=== PATIENT | female | born 1950 | race Caucasian/White ===

== ENCOUNTER 2017-06-14 07:35 | Day surgery (SDC) | payer BC ==
[~2017-06-14] VITALS: Ht 157.5 cm; Wt 88.9 kg
[~2017-06-14 07:35] MED LIST: CALCIUM500 MG PO; DAILY VITE1 EACH PO; FLAX SEED OIL1000 MG PO; LANTUS100 UNITS/ SUB-Q; METFORMIN HCL500 MG PO; SIMVASTATIN40 MG PO; SYNTHROID100 MCG PO; VITAMIN D2000 UNI1 PO
[2017-06-14] MEDS ORDERED: ADULT LOW DOSE81 MG PO (07:56)
--- NOTE | 2017-06-14 10:39 | NUR ---
PT RETURNS FROM IMAGING AND IV IS RECONNECTED. FAMILY REMAINS @ BS. PT AMBULATES TO THE BR AND IS BACK IN BED. PT DENIES ADD'L NEEDS.
[2017-06-14] MEDS ORDERED: IBUPROFEN600 MG PO (14:32)
[2017-06-14] MEDS ORDERED: HYDROMORPHONE HC4 MG PO (14:32)
[2017-06-14] MEDS ORDERED: MAPAP325 MG PO (14:33)
--- NOTE | 2017-06-14 14:57 | NUR ---
PT IS BACK TO DS FROM PACU. PT IS AWAKE AND ALERT, FAMILY IS AT THE BEDSIDE. PT HAS WATER ON THE BEDSIDE TABLE. SHE HAS NO C/O'S PAIN OR NAUSEA AT THIS TIME. CALL LIGHT WITHIN REACH. NO OTHER C/O'S AT THIS TIME. WILL REASSES WITHIN THE HOUR.
--- NOTE | 2017-06-14 15:53 | NUR ---
PT REPORTS HER PAIN IS IMPROVING AFTER PAIN MEDICATION. SHE WOULD LIKE TO GET UP AND GO TO THE BATHROOM.
--- NOTE | 2017-06-14 16:17 | NUR ---
PT AND FAMILY EDUCATED ON HOW TO CARE FOR FROILAN DRAIN. DC INSTRUCTIONS VERBALLY GIVEN, QUESTIONS ASKED THROUGHOUT THE DC PROCESS.
--- NOTE | 2017-06-15 10:41 | OR ---
[facility] [address], [place] [address] Signed DATE OF OPERATION: 06/14/2017 SURGEON: Celso Gates MD PREOPERATIVE DIAGNOSES: 1. Left central upper infiltrating ductal breast carcinoma. ER positive, VA negative, HER-2/mac pending. 2. Poor radionuclide uptake to axilla on sentinel lymph node identification. POSTOPERATIVE DIAGNOSES: 1. Left central upper infiltrating ductal breast carcinoma. ER positive, VA negative, HER-2/mac pending. 2. Poor radionuclide uptake to axilla on sentinel lymph node identification. 3. Uptake of methylene blue dye to axillary lymph node suspicious for metastatic disease. PROCEDURES: 1. Injection of methylene blue dye for sentinel lymph node identification. 2. Left axillary sentinel lymph node biopsy. 3. Left axillary lymph node dissection with placement of drain. 4. Excision of left breast carcinoma, central upper breast with additional resection of suspicious tissue in the left lower lateral aspect. 5. Oncoplastic closure with mobilization of breast parenchyma to close defect and excision of skin for cosmetic benefit. ANESTHESIA: General endotracheal, Audi Colindres CRNA. INDICATION: This is a 66-year-old white woman, who [facility] and identified as having a palpable mass in the upper left breast a few cm from the areolar margin. Image-guided biopsy by Dr. Fu confirmed infiltrating ductal carcinoma, ER positive, VA negative, HER-2/mac pending. The mass is easily palpable and despite a fair amount of ecchymosis from her biopsy measured clinically about 2 cm, possibly larger. There is no other regional palpable mass bladder exam. She does have morbid obesity. The left axilla is clinically negative. She is admitted at this time to undergo partial mastectomy, sentinel lymph node biopsy, anticipating radiation therapy, as well as other indicated therapies depending on pathologic findings. Electronically Signed By: CELSO GATES MD 06/15/17 1041 PATIENT NAME: SHAHRAM ROA OPERATIVE REPORT DATE OF : 54 PHYSICIAN: CELSO GATES MD REPORT #: [id number] REPORT IS CONFIDENTIAL AND NOT TO BE RELEASED WITHOUT AUTHORIZATION [facility] [address], [place] [address] Signed She understands the risks of bleeding, infection, arm edema, need for additional therapy including additional resection of breast tissue, additional axillary surgery or even mastectomy depending on findings and wishes to proceed. FINDINGS: Radionuclide identification of axillary lymph node was not accomplished though attempted. Good injection and uptake in the surrounding parenchyma of the breast were noted, but no uptake to the axilla appreciably. Methylene blue dye injected in the operating room setting showed arborization of the lymphatics in the areolar area, but no generalized arborization, but a left axillary lymph node was identified as having high uptake of methylene blue dye and a relatively large palpable node. Frozen pathology by Dr. Ramos and his colleagues showed the lymph node to be suspicious for metastatic disease, but not certain. Palpation of the axilla in addition to this frozen pathology prompted complete axillary dissection as the lymph nodes were suspicious for metastatic disease. Long thoracic and thoracodorsal neurovascular bundles were identified and preserved. As regard to the tumor itself, it was relatively large. It was located a few centimeters cephalad to the areolar margin. A circumareolar incision was made and meticulous care made to maintain a negative margin in all areas, which resulted in a relatively large defect. Parenchymal mobilization to close the defect was accomplished for its oncoplastic purpose. Additional skin was resected to this and as well. The resected skin was directly over the area of the tumor and was additionally sent as specimen. Of note, another completely different focus of very suspicious breast parenchyma in the inferior lateral aspect was noted, which would make it essentially in a different quadrant. This was fully excised and we await final pathology to know it is true identity, but I am very suspicious it may represent a separate focus of breast cancer that was not identified on imaging studies or on clinical exam. DESCRIPTION OF PROCEDURE: The patient was brought to the operating room having been received from the Radiology suite for attempted localization with radionuclide. I reviewed the films with Dr. Fu and there was no obvious uptake in the axilla on imaging studies. In the supine position, she was given a general endotracheal anesthetic and preoperative antibiotic Ancef as well as sequential compression device stockings and heparin subcutaneously administered. Using the C-Trak radionuclide probe, obvious strong signal was noted in the circumareolar area, but no appreciable uptake in the axilla itself. There was a small amount in the parenchyma laterally, but not much. Nevertheless, methylene blue dye was injected in the left periareolar area in the upper outer aspect anticipating an axillary incision and probable axillary dissection. Palpation of the axilla did show some suspicious palpable adenopathy high in the axilla, not previously known. Electronically Signed By: CELSO GATES MD 06/15/17 1041 PATIENT NAME: SHAHRAM ROA OPERATIVE REPORT DATE OF : 54 PHYSICIAN: CELSO GATES MD REPORT #: [id number] REPORT IS CONFIDENTIAL AND NOT TO BE RELEASED WITHOUT AUTHORIZATION [address] [address] Signed The breast was prepared with chlorhexidine solution and draped sterilely. An incision was made transversely in the upper axilla. Dissection carried through the dermis with electrocautery and blunt dissection allowing for interrogation of the fatty left axillary contents. Palpation deep within the axilla did show several suspicious large very firm lymph nodes. Dissection on the medial wall of the cavity showed a palpable lymph node that had good uptake of methylene blue dye. This was dissected free and considered sentinel lymph node. Application of the C-Trak probe to it did not show appreciable radioactivity, however. Specimens considered a sentinel lymph node nevertheless and examined by the pathologist, Dr. Kota Ramos. Though we could not say definitively that there was metastatic disease within the lymph node, he was suspicious and given the clinical circumstances I certainly highly suspicious that it did represent metastatic disease. On that basis, completion axillary dissection was considered appropriate. Using sharp dissection, the axillary vein was identified in the soft tissue inferior to it, was dissected free away from the axillary vein. Clips were applied to small vessels as necessary and intercostal brachial vessels which could not be avoided and their division and dissection also secured. The long thoracic and thoracodorsal neurovascular bundles were identified and preserved. The axillary packet was ultimately freed from a superior to inferior and medial direction excising a generous packet of lymph nodes. The tissue was with a hemostat and another small sentinel lymph node was identified and marked with a suture for further attention on permanent examination. The wound was irrigated with sterile water, showing no sign of untoward bleeding. The axilla was packed with a plain gauze and attention turned towards the primary lesion. The palpable lesion was a few centimeters cephalad to the areolar margin. The areolar margin was marked carefully and incised a 1 cm margin from the palpable neoplasm cephalad and its orientation was taken directly down to the essentially the chest wall providing an inferior margin that was clinically quite clear. Subsequently, a flap was elevated cephalad directly over the tumor maintaining a clinically negative margin. Dissection laterally and medially was then undertaken, excising a very generous segment of breast tissue, certainly a partial mastectomy. The specimen was marked with a single stitch in the inferior margin. A double stitch in the superficial margin and 3 silk sutures laterally. Notably in that area was a small nodule completely separate from the index lesion, which was suspicious for either an intraparenchymal lymph node with metastatic disease or perhaps a 2nd lesion. Palpation within the resected cavity laterally showed a very dense lesion. This was inferior and lateral. This was grasped with an Allis clamp and excised with electrocautery with a wide margin and is very suspicious for additional focus of malignancy. This is not certain, however, and final pathology is pending. At this point, the defect of the resected site was rather considerable. Parenchymal mobilization for a more oncoplastic closure was deemed advisable and readily possible. Electronically Signed By: CELSO GATES MD 06/15/17 1041 PATIENT NAME: SHAHRAM ROA OPERATIVE REPORT DATE OF : 54 PHYSICIAN: CELSO GATES MD REPORT #: [id number] REPORT IS CONFIDENTIAL AND NOT TO BE RELEASED WITHOUT AUTHORIZATION [address] [address] Signed A flap was elevated cephalad freeing the overlying skin and subcutaneous tissue from the underlying breast parenchyma. Mobilization of this pedicle superiorly to the inferior pedicle beneath the nipple was undertaken and secured with interrupted 2-0 Vicryl suture. This allowed for good reapproximation of parenchymal remnants. The deep dermis was reapproximated with interrupted 2-0 Vicryl and redundant dermis was quite obvious cephalad and resected. That resected skin would correspond to being directly over the neoplasm that has previously been resected. Additional reapproximation of dermis throughout the length of the incision closed the wound down quite markedly. Tethering of the dermis to underlying parenchyma was still present to a small degree, but left in situ, so as to not excessively mobilize the superior flap. The skin was then closed with interrupted 3-0 Vicryl and a running subcuticular 3-0 Vicryl ultimately performed. Steri-Strips were applied as was a Mepilex silver sponge dressing and an OpSite. Reinspection of the axilla showed good hemostasis. Irrigation was undertaken showing no bleeding. Through a separate stab incision, a 7 mm flat Spencer drain was placed and secured to the skin with nylon suture. The wound was closed in layers with interrupted 2-0 Vicryl and running subcuticular 3-0 Vicryl. Steri-Strips were applied as well as a Mepilex silver sponge dressing and an OpSite. The blood loss was approximately 50 mL in aggregate. Most of it related to the breast parenchymal dissection. The operation was somewhat prolonged, complicated, and difficult on the basis of need for oncoplastic closure technique. MD LAURIE العلي/KRISTY /[id number] cc: REZA Parker MD Electronically Signed By: CELSO GATES MD 06/15/17 1041 PATIENT NAME: SHAHRAM ROA OPERATIVE REPORT DATE OF : 54 PHYSICIAN: CELSO GATES MD REPORT #: [id number] REPORT IS CONFIDENTIAL AND NOT TO BE RELEASED WITHOUT AUTHORIZATION
[2017-08-29] MEDS ORDERED: FLAXSEED OIL (14:55)
[2017-08-29] MEDS ORDERED: LOSARTAN POTASS50 MG PO (14:59)
[2017-09-30] MEDS ORDERED: DEXAMETHASONE4 MG PO (12:03)
[2017-09-30] MEDS ORDERED: ONDANSETRON ODT8 MG PO (12:03)
[2017-09-30] MEDS ORDERED: LORAZEPAM1 MG PO (12:05)
== END 2017-06-14 16:30 | disposition home or self-care (01) ==
LOC: DS 07:35 → EDSTATUS 08:30 → NUC 08:30 → DS 16:30
PROC: 0HBU0ZZ Excision of Left Breast, Open Approach (ICD-10-PCS; principal; 2017-06-14)
PROC: 07B60ZX Excision of Left Axillary Lymphatic, Open Approach, Diagnostic (ICD-10-PCS; 2017-06-14)
DX: C50.512 Malignant neoplasm of lower-outer quadrant of left female breast (principal); C50.112 Malignant neoplasm of central portion of left female breast; C77.3 Secondary and unspecified malignant neoplasm of axilla and upper limb lymph nodes; E11.9 Type 2 diabetes mellitus without complications; E78.5 Hyperlipidemia, unspecified; E78.00 Pure hypercholesterolemia, unspecified; E05.90 Thyrotoxicosis, unspecified without thyrotoxic crisis or storm; Z79.82 Long term (current) use of aspirin; Z79.899 Other long term (current) drug therapy; Z17.0 Estrogen receptor positive status [ER+]; Z88.5 Allergy status to narcotic agent; Z91.018 Allergy to other foods; Z90.49 Acquired absence of other specified parts of digestive tract; Z98.890 Other specified postprocedural states
CPT/HCPCS: 00404; 71045; 78195; A9541; J0330; J0690; J1170; J1644; J1885; J2250; J2405; J2704; J2765; J3010; J7120

== ENCOUNTER 2017-06-23 05:45 | Inpatient (IN) | payer BC ==
[~2017-06-23] VITALS: Ht 157.5 cm; Wt 88.9 kg
[~2017-06-23 05:45] MED LIST changes: +ADULT LOW DOSE81 MG PO; +HYDROMORPHONE HC4 MG PO; +IBUPROFEN600 MG PO; +MAPAP325 MG PO
--- NOTE | 2017-06-23 09:59 | NUR ---
06/23/17 0959 Anamaria Olson 5721-PATIENT ARRIVED TO PACU ON 6L MASK O2 SAT 100% PATIENT REACTIVE EYES SLIGHTLY OPEN GLUCOSE 95. INCISION CDI WITH 2 FROILAN DRAINS.
--- NOTE | 2017-06-23 11:10 | NUR ---
TO ROOM 107 FROM PACU, BROUGHT ON STRETCHER WITH OLAP DEVELOPER. REPORT RECIEVED FROM MIGUEL CUSTOMER EXPERIENCE ANALYST NURSE. FAMILY WITH PATIENT. PATIENT ALERT AND ORIENTED AND INTERACTING. ICE CHIPS PROVIDED.
--- NOTE | 2017-06-23 12:59 | NUR ---
CONSULTED [facility] AND THEY WILL BE COMING TO SEE PATIENT IN ABOUT 20 MINUTES.
[2017-06-23] MEDS ORDERED: LANTUS SOL100 UNIT/1 SUB-Q (13:24)
[2017-06-23] MEDS ORDERED: BLOOD GLUCOSE1 EACH MISC (13:27)
--- NOTE | 2017-06-23 14:35 | NUR ---
PATIENTS PAIN LEVEL AT A 5/10 IN HER LEFT CHEST DUE TO SURGERY, PATIENT GIVEN 0.5MG OF DILAUDID IV AT THIS TIME. IV ANCEF HUNG AND RUNNING. PATIENT 1 PERSON ASSIST UP TO THE BATHROOM TO VOID, WAS FAIRLY STEADY ON HER FEET NO C/O DIZZINESS.
--- NOTE | 2017-06-23 14:53 | NUR ---
DANIELLE FROM [facility] REPORTS THAT SHE CAME TO CONSULT. SOME EQUIPMENT PROVIDED TO HER AND DISCUSSED CASE WITH PATIENT. ALSO, DANIELLE STATES WILL BE COMING TOMORROW TO SEE PATIENT AGAIN.
--- NOTE | 2017-06-23 16:54 | NUR ---
Pt. IS RESTING IN BED WITH FRIENDS AT . INTRODUCED SELF TO HER AND WILL HELP WITH CARE TOMORROW MORNING.
--- NOTE | 2017-06-23 18:25 | NUR ---
FROILAN DRAINS STRIPPED AND EMPTIED. SEROSANGUINESS FLUID PRESENT. ALSO LARGE CLOT PRESENT IN FROILAN DRAIN #2. TAKES UP ABOUT 1/3 OF THE DRAIN. AND FROILAN #1 HAS A SMALLER CLOT IN IT. DR GATES STATES NOT TO WORRY ABOUT THE CLOTS AND TO JUST CONTINUE STRIPPING THE DRAINS WHEN EMPTYING THEM. DR GATES IN TO SEE PATIENT.
--- NOTE | 2017-06-23 18:27 | NUR ---
STEADY ON FEET, UP TO BATHROOM WITH STANDBY ASSIST, HAS 2 FROILAN DRAINS WITH LARGE CLOTS PRESENT IN THE BULBS. DRESSING IS C/D/I, LEFT ARM RESTRICTED EXTREMETY. PAIN CONTROLLED WITH DILAUDID. EATING AND DRINKING WELL.
--- NOTE | 2017-06-23 20:16 | NUR ---
ROUNDED CHARGE. ASSISTED PATIENT TO THE RESTROOM A SBA. PATIENT WAS ABLE TO VOID. PATIENT IS NOW BACK IN BED RESTING. ICE WATER REFILLED PER REQUEST. PATIENT DENIES ANY PAIN. NO FURTHER NEEDS NOTED. CALL LIGHT IN REACH.
--- NOTE | 2017-06-23 21:46 | NUR ---
MEDICATWED WITH MORPHINE 0.5MG IV C/O 09/08 LEFT BREAST SURGERY AREA
--- NOTE | 2017-06-24 00:23 | NUR ---
RESTING, NO C/O PAIN, NO RESP DISTRESS
--- NOTE | 2017-06-24 02:47 | NUR ---
Up to brp with one assist, passing gas, no bm, voided clear urine. bacak to bed. c/o left breast area pain, medicated, coop with assessment
--- NOTE | 2017-06-24 03:43 | NUR ---
MEDICATED WTIH DILAUDID 4MG, SECOND DOSE GIVEN PT STATED NO PAIN RELIEF FROM PAIN MED GIVEN EARLIER
--- NOTE | 2017-06-24 04:05 | NUR ---
PT IN BED, VAPOTHERN IN PLACE 20L N/C, 70% . CONT PULSE OX IN PLACE 92%. PT UP TO BSC, SATS DROPPED TO 80%, VAPOTHERN IN PLACE, CDB ENCOURAGED, BACK TO BED AFTER VOIDING. AFTER A FEW MINUTES SATS WENT UP TO 86%, THEN 88%. MORE CDB ENCOURAGED, HOB ELEVATED, SATS 89-90%. SOB WITH EXERTION PRESENT
--- NOTE | 2017-06-24 06:19 | NUR ---
Pt has slept this shift, was medicated wtih Dilaudid 0.5mg iv x1 and with Dilaudid po 4mg x2 with good relief after second 4mg. adn w zofran x1 per c/o n/v, no emesis presetn. Dressing left breast/chest area intact. 2 FROILAN with sanguineous drainage, patent. Pt gets up to brp with minimum of assist
--- NOTE | 2017-06-24 06:42 | NUR ---
Medicated with secong 4mg of Zofran, pt having ddry heaving, no c/o pain. awake watching tv
--- NOTE | 2017-06-24 07:25 | NUR ---
RECIEVED BEDSIDE REPORT FROM MATTY MILLS. PT AWAKE AND ALERT IN BED. PT STATES PAIN IS WELL CONTROLED AT THIS TIME. PT DENIES NEEDS AT THIS TIME. PERSONAL BELONGINGS IN REACH.
--- NOTE | 2017-06-24 07:38 | NUR ---
ORDERED PATIENT'S BREAKFAST AND ALSO SET HER UP FOR A SHOWER SOMETIME TODAY. WILL BRUSH HER TEETH AFTER BREAKFAST.
[2017-06-24] MEDS ORDERED: IBUPROFEN600 MG PO (09:35)
[2017-06-24] MEDS ORDERED: HYDROMORPHONE HC4 MG PO (09:37)
[2017-06-24] MEDS ORDERED: GLUCOPHAGE500 MG PO (10:06)
--- NOTE | 2017-06-24 10:37 | NUR ---
PT DECLINED SHOWER SINCE SHE IS GOING HOME. SHE WILL SHOWER AT HOME. PT VERBALIZED UNDERSTANDING OF DISCHARGE INSTRUCTIONS, HANDOUT GIVEN. ALL QUESTIONS ANSWERED.
--- NOTE | 2017-07-07 14:11 | OR ---
[facility] [address] [place] [address] Signed DATE OF OPERATION: 06/23/2017 SURGEON: Celso Gates MD PREOPERATIVE DIAGNOSIS: 1. Left multicentric infiltrating ductal breast carcinoma, stage III. 2. Recent partial mastectomy with sentinel lymph node biopsy and completion axillary dissection. POSTOPERATIVE DIAGNOSES: 1. Left multicentric infiltrating ductal breast carcinoma, stage III. 2. Recent partial mastectomy with sentinel lymph node biopsy and completion axillary dissection. PROCEDURE: 1. Left total mastectomy. 2. Left T plasty of axillary soft tissue. ANESTHESIA: General endotracheal. ANESTHESIOLOGIST: Audi Colindres CRNA. INDICATION: This 66-year-old white woman is a patient of Kaitlyn Garcia PA-C and recently underwent a partial mastectomy by ne for a tumor located in the upper central aspect, which was an infiltrating ductal carcinoma, ER/NV negative, HER-2/mac negative. At the time of wide resection of the lesion, she was found to have a satellite lesion in a different quadrant of the breast in the lower outer aspect. The margin on that additionally resected tissue was positive. Her sentinel lymph node biopsy was positive at that time and she underwent completion axillary dissection with multiple positive axillary lymph nodes. Consideration has been made for further management and total mastectomy was recommended. Given the findings of additional focus of breast cancer, considered multicentric given its location and different quadrant of the breast. She is rather obese, although an oncoplastic closure has been accomplished with a very good cosmetic result. Mastectomy is recommended and consideration for delayed reconstruction would be made in the future as well. Electronically Signed By: CELSO GATES MD 07/07/17 1411 PATIENT NAME: SHAHRAM ROA OPERATIVE REPORT DATE OF : 54 REPORT #: [id number] PHYSICIAN: CELSO GATES MD PCP: KAITLYN GARCIA PAC REPORT IS CONFIDENTIAL AND NOT TO BE RELEASED WITHOUT AUTHORIZATION [facility] [address] [place] [id number] Signed The patient and her and daughters understand the risks of bleeding, infection, cosmetic deformity, arm numbness, lymphedema, and other unforeseen complications and wished to proceed. Additionally, it is clear that she will need adjuvant therapy including chemotherapy and possibly even radiation therapy depending on circumstances. Understands that she wished to proceed. FINDINGS: The left breast and a large excision related to partial mastectomy was healing well. The left axillary drain remained in place and it was down to about 28 mL a day. A tattoo in the superior aspect of the breast was preserved during the course of the resection. A total mastectomy was accomplished. There was a very cosmetically unattractive lateral aspect of the posterior axillary fold as it is typical of patients with significant obesity. This was addressed by a T plasty including excision of soft tissue, skin, and so forth. Much improved cosmetic result was noted on the basis of that closure. DESCRIPTION OF PROCEDURE: The patient was brought to the operating room, given a general endotracheal anesthetic. Preoperative antibiotic Ancef was given. Sequential compression device stockings used and heparin subcutaneously administered. The left breast and axilla were examined. Steri-Strips were removed from the recent operation. The drain was left in situ and prepped in with chlorhexidine solution. An elliptical incision was made incorporating the nipple-areolar complex in the previous circumareolar incision. The superior based tattoo was left in place. Superior and inferior flaps were developed with sharp dissection using a 20-blade. The breast was excised from medial and superior aspect inferiorly and laterally excising the breast completely including the fascia attached to the pectoralis. In the region of the axilla, the axillary area was entered. The gelatinous appearing smooth axillary contents were noted and the drain noted as well. There was no sign of problem in this area. The drain was transected at the skin level and removed, however, anticipating placement of another drain. Hemostasis was assured with electrocautery as only sharp dissection was used for the flaps to minimize flap compromise. It was clear that the lateral aspect of the posterior axillary fold and its significant amount of adipose tissue would need to be managed carefully to improve cosmetic effect in relation to mastectomy. A partial reapproximation of the flaps with a 2-0 Vicryl was used and a T plasty was deemed most advisable to provide for cosmetic benefit. The T flaps were developed superiorly and inferiorly, excising a generous portion of skin and subcutaneous tissue inferiorly, superiorly, and laterally as usual. The wound edges were closed with interrupted 2-0 Vicryl throughout and a running subcuticular 3-0 Vicryl used for the Electronically Signed By: CELSO GATES MD 07/07/17 1411 PATIENT NAME: SHAHRAM ROA OPERATIVE REPORT DATE OF : 54 REPORT #: [id number] PHYSICIAN: CELSO GATES MD PCP: KAITLYN GARCIA PAC REPORT IS CONFIDENTIAL AND NOT TO BE RELEASED WITHOUT AUTHORIZATION [address] [address] Signed skin. Steri-Strips were applied. The cosmetic result is quite good, particularly in comparison to having left the posterior axillary flap in situ. Flap viability was excellent. Two drains have been placed, one in the sub flap. The other in the axillary area. Not mentioned previously was irrigation of the entire wound cavity with sterile water, 2 L in total for its tumor-lytic effect. Steri-Strips were applied as was a Mepilex silver sponge dressing. The drains had been attached to the skin with nylon suture and attached to bulb suction. Blood loss was about 100 mL in aggregate. Sponge, needle, and instrument counts reported as correct x3. MD LAURIE العلي/MANDIL /[id number] cc: MD Kaitlyn Hayden PA-C Robert C Quackenbush, MD Copies: ELENA ROMERO MD, ERIKA PAC QUACKENBUSH, ROBERT C MD ~ Electronically Signed By: CELSO GATES MD 07/07/17 1411 PATIENT NAME: SHAHRAM ROA OPERATIVE REPORT DATE OF : 54 REPORT #: [id number] PHYSICIAN: CELSO GATES MD PCP: KAITLYN GARCIA REPORT IS CONFIDENTIAL AND NOT TO BE RELEASED WITHOUT AUTHORIZATION
[2017-08-29] MEDS ORDERED: FLAXSEED OIL (14:55)
[2017-08-29] MEDS ORDERED: LOSARTAN POTASS50 MG PO (14:59)
[2017-09-30] MEDS ORDERED: ONDANSETRON ODT8 MG PO (12:03)
[2017-09-30] MEDS ORDERED: DEXAMETHASONE4 MG PO (12:03)
[2017-09-30] MEDS ORDERED: LORAZEPAM1 MG PO (12:05)
== END 2017-06-24 11:00 | disposition home or self-care (01) | DRG 582 ==
LOC: DS 05:45 → MS 10:50 → DS 10:50 → MS 06-24 11:00
PROVIDERS: ADMIT Surgery
PROC: 0KX Muscles, Transfer (ICD-10-PCS; principal; 2017-06-23 06:45)
PROC: 0HTU0ZZ Resection of Left Breast, Open Approach (ICD-10-PCS; principal; 2017-06-23 06:45)
DX: C50.812 Malignant neoplasm of overlapping sites of left female breast (principal); C77.3 Secondary and unspecified malignant neoplasm of axilla and upper limb lymph nodes; Z17.1 Estrogen receptor negative status [ER-]
CPT/HCPCS: 00404; 36415; 85025; J0330; J0690; J1170; J1644; J1885; J2250; J2405; J2704; J2765; J3010; J7120

== ENCOUNTER 2017-07-19 05:45 | Day surgery (SDC) | payer BC ==
[~2017-07-19] VITALS: Ht 157.5 cm; Wt 83.4 kg
[~2017-07-19 05:45] MED LIST changes: +BLOOD GLUCOSE1 EACH MISC; +GLUCOPHAGE500 MG PO; +LANTUS SOL100 UNIT/1 SUB-Q
--- NOTE | 2017-07-19 08:31 | NUR ---
07/19/17 0831 Carlene Fry 0826 PATIENT ARRIVES TO PACU UNRESPONSIVE TO PAIN OR VERBAL STIMULI. RESP EVEN AND UNLABORED, MASK AT 6 LITERS. SNAP WOUND VAC TO LEFT CHEST. 0830 PATIENT SPONTANEOUSLY OPENS EYES, ORIENTED TO PACU, DENIES PAIN, THEN BACK TO SLEEP. MASK OFF.
[2017-07-19] MEDS ORDERED: HYDROCODON-ACE1 EA10 PO (08:55)
[2017-07-19] MEDS ORDERED: ROBAFEN-DM SYR118 ML PO (08:55)
--- NOTE | 2017-07-19 09:12 | NUR ---
ICED WATER AND JELLO GIVEN. SPOUSE @ BS. PATIENT STANDS AND AMBULATES TO THE BR AND DOES THAT WELL. PT VOIDS 600 ML CLEAR, LIGHT YELLOW URINE AND IS BACK IN BED. SCDS IN PLACE. CALL LIGHT W/IN REACH.
--- NOTE | 2017-07-19 10:01 | NUR ---
DC INSTRUCTIONS GIVEN IN PRESENCE OF SPOUSE. BOTH VERBALIZE UNDERSTANDING. PT DRESSING IN PRESENCE OF SPOUSE.
--- NOTE | 2017-07-19 13:58 | OR ---
[facility] [address], [place] [address] Signed DATE OF OPERATION: 07/19/2017 SURGEON: Celso Gates MD PREOPERATIVE DIAGNOSIS: Stage 3 breast cancer, left side, status post left total mastectomy with axillary dissection (June 23, 2017). POSTOPERATIVE DIAGNOSES: 1. Necrosis of T plasty lateral aspect of the incision with seroma formation medially. 2. Chronic cough. PROCEDURES: 1. Exam under anesthesia and debridement of skin, subcutaneous tissue and eschar, lateral mastectomy wound site. 2. Aspiration of medial sub flap seroma. 3. Application of wound VAC device (SNAP device). ANESTHESIA: General endotracheal (Esther Chavarria CRNA). INDICATION: This 66-year-old white woman is a patient of Kaitlyn Garcia and Dr. Ann Fu. She underwent lumpectomy with sentinel lymph node biopsy and axillary dissection on June 14, 2017. She was found to have more than one lesion within the breast and in a different quadrant. Her axillary dissection at the time of her initial operation showed 4/12 regional lymph nodes positive for metastatic disease. She returned the operation on June 23, 2017, for a total mastectomy. Due to her obesity, a T plasty was undertaken of the lateral axillary fat tissue. Although initially healing well, she then developed some flap necrosis in the inferior aspect of the T plasty and recently has developed a bit of a seroma medially. Both drains had been removed. A plan was made today for Port-A-Cath placement, anticipating chemotherapy in the near future. However, given the erythema and inflammation and so forth related to the flap necrosis, the Port-A-Cath was delayed and debridement of the wound is deemed more appropriate at this time. She understands as does her , the risks of bleeding, infection, need for additional treatment and so forth and wished to proceed with wound debridement as necessary. FINDINGS: There is a seroma in the medial sub-flap area, which was aspirated. This fluid was sent Electronically Signed By: CELSO GATES MD 07/19/17 1358 PATIENT NAME: SHAHRAM ROA OPERATIVE REPORT DATE OF : 54 REPORT #: [id number] PHYSICIAN: CELSO GATES MD PCP: KAITLYN GARCIA PAC REPORT IS CONFIDENTIAL AND NOT TO BE RELEASED WITHOUT AUTHORIZATION [facility] [address], [place] [address] Signed for Gram stain and culture, though it did not appear infected nor was it foul smelling. The dense eschar laterally in the T plasty was mostly in the inferior limb of the T plasty and was debrided fully. Some necrotic fat was noted as well. Debridement was taken back to viable tissue. There was granulation of the sub-flap area more medially. Ultimately, a SNAP device (wound VAC device) was applied to the area in question, which held a good seal and appeared to be optimal for ongoing wound management. The patient does have a chronic cough, though chest x-ray recently performed showed no sign of infiltrate or pneumonia. Notably, she has been on antibiotic Bactrim recently. DESCRIPTION OF PROCEDURE: The patient was brought to the operating room, given a general endotracheal anesthetic. Preoperative antibiotic Ancef was given. Sequential compression device stockings were used. The left chest wall was prepared with a chlorhexidine solution and draped sterilely. An aspiration of the medial seroma in the left breast was undertaken, draining somewhat copper appearing fluid. This was later sent for Gram stain and culture. Complete decompression was undertaken. Laterally, sharp dissection was undertaken of a dense eschar, which was excised and debrided fully through some necrotic fat. At the base of the wound, a good granulation was noted. Whether or not the seromatous cavity and the lateral aspect of the incision were connected. It is uncertain though a small connection is likely as milking of the seroma area did allow for egress of seromatous fluid out the lateral aspect. Once complete debridement was undertaken, which included skin, subcutaneous tissue, and eschar, a SNAP device was cut to appropriate configuration and secured. The SNAP device allowed for good suction and the seal maintained. An OpSite had been applied over the area as well. The patient was then extubated and transferred to recovery room in good condition. MD LAURIE العلي/MODL /[id number] cc: MD Kaitlyn Hunt PA-C Electronically Signed By: CELSO GATES MD 07/19/17 1358 PATIENT NAME: SHAHRAM ROA OPERATIVE REPORT DATE OF : 54 REPORT #: [id number] PHYSICIAN: CELSO GATES MD PCP: KAITLYN GARCIA PAC REPORT IS CONFIDENTIAL AND NOT TO BE RELEASED WITHOUT AUTHORIZATION [address] [address] Signed Copies: CHRISTOFER GONSALEZ MD, ERIKA PAC ~ Electronically Signed By: CELSO GATES MD 07/19/17 1358 PATIENT NAME: SHAHRAM ROA ANN OPERATIVE REPORT DATE OF : 54 REPORT #: [id number] PHYSICIAN: CELSO GATES MD PCP: KAITLYN GRACIA REPORT IS CONFIDENTIAL AND NOT TO BE RELEASED WITHOUT AUTHORIZATION
[2017-08-29] MEDS ORDERED: FLAXSEED OIL (14:55)
[2017-08-29] MEDS ORDERED: LOSARTAN POTASS50 MG PO (14:59)
[2017-09-30] MEDS ORDERED: ONDANSETRON ODT8 MG PO (12:03)
[2017-09-30] MEDS ORDERED: DEXAMETHASONE4 MG PO (12:03)
[2017-09-30] MEDS ORDERED: LORAZEPAM1 MG PO (12:05)
== END 2017-07-19 10:15 | disposition home or self-care (01) ==
LOC: DS 05:45 → OPS 05:45 → DS 06:45 → OPS 10:15
PROVIDERS: Surgery
PROC: 0H9U3ZZ Drainage of Left Breast, Percutaneous Approach (ICD-10-PCS; 2017-07-19)
PROC: 0JB60ZZ Excision of Chest Subcutaneous Tissue and Fascia, Open Approach (ICD-10-PCS; principal; 2017-07-19 06:45)
DX: L76.34 Postprocedural seroma of skin and subcutaneous tissue following other procedure (principal); I96 Gangrene, not elsewhere classified; C50.112 Malignant neoplasm of central portion of left female breast; E89.0 Postprocedural hypothyroidism; E11.9 Type 2 diabetes mellitus without complications; E78.5 Hyperlipidemia, unspecified; I10 Essential (primary) hypertension; E05.90 Thyrotoxicosis, unspecified without thyrotoxic crisis or storm; Z17.0 Estrogen receptor positive status [ER+]; Z88.5 Allergy status to narcotic agent; Z90.12 Acquired absence of left breast and nipple; Z98.890 Other specified postprocedural states; Z79.82 Long term (current) use of aspirin; Z79.899 Other long term (current) drug therapy; Z79.4 Long term (current) use of insulin
CPT/HCPCS: 00404; 87070; 87075; 87077; 87186; 87205; J0690; J2250; J2704; J3010; J7120

== ENCOUNTER 2017-08-30 07:05 | Day surgery (SDC) | payer BC ==
[~2017-08-30] VITALS: Ht 157.5 cm; Wt 83.4 kg
[~2017-08-30 07:05] MED LIST changes: +FLAXSEED OIL; +HYDROCODON-ACE1 EA10 PO; +LOSARTAN POTASS50 MG PO; +ROBAFEN-DM SYR118 ML PO
--- NOTE | 2017-08-30 07:32 | NUR ---
CALL LIGHT W/IN REACH. PT REPORTS SHE CAN TELL WHEN HER BLOOD SUGAR IS LOW.
[2017-08-30] MEDS ORDERED: MAPAP325 MG PO (12:53)
[2017-08-30] MEDS ORDERED: HYDROCODON-ACE1 EA10 PO (12:54)
--- NOTE | 2017-08-30 12:59 | NUR ---
08/30/17 Noemi9 Cecy Sanchez 1244 PT ARRIVED TO PACU REACTIVE, RESP EVEN AND UNLABORED. PT MAINTAINING OWN AIRWAY. 1247 CBG 63, NOTIFIED AND ORDERS PT TO DRINK JUICE IF AWAKE ENOUGH. PT WAKES TO STIMULI AND DENINES PAIN. 1255 XRAY AT BEDSIDE, PT SAT UP IN HIGH FOWLERS AND DRINKING JUICE. PT DENIES PAIN AND NAUSEA. O2 MASK REMOVED, O2 SAT 100%. WILL RECHECK CBG IN 30 MINS. AND TRUCK DRIVER IN PACU.
--- NOTE | 2017-08-30 13:31 | NUR ---
SOUP, WATER AND JUICE GIVEN. LEFT BREAST WOUND DRESSING IS NOT ADHERED AND IS CHANGED AT THIS TIME. SCANT AMOUNT OF YELLOW/PINK DRAINAGE IS NOTED TO OLD DRESSING. MEDIAL ASPECT OF SURGICAL INCISION REMAINS OPEN AND MEASURES APPROXIMATELY 2 CM WIDE. ALLEVYN 3X3 DRESSING IS APPLIED. PT'S SPOUSE IS @ THIS BS. CALL LIGHT IS W/IN REACH.
--- NOTE | 2017-08-30 14:08 | NUR ---
PT UP TO BR W/RN STANDBY. PT VOIDS UNMEASURED AMOUNT AND FEELS HER BLADDER IS EMPTY. PT AMBULATES BACK TO HER BED AND SCDS ARE IN PLACE. CALL LIGHT W/IN REACH.
--- NOTE | 2017-08-30 18:28 | OR ---
[facility] [address] [place], [place] [address] Signed DATE OF OPERATION: 08/30/2017 SURGEON: Celso Gates MD PREOPERATIVE DIAGNOSES: 1. Left stage III breast carcinoma. 2. Obesity. POSTOPERATIVE DIAGNOSES: 1. Left stage III breast carcinoma. 2. Obesity. PROCEDURES: 1. Right internal jugular Bard port catheter placement. 2. Surgeon-directed fluoroscopy. 3. Completion angiogram of Port-A-Cath device. ANESTHESIA: General LMA; Celso Granda CRNA and local 10 mL of 1% lidocaine. INDICATION: A 66-year-old white woman is a patient of Kaitlyn Quintanilla and has undergone left mastectomy with axillary dissection for stage III breast carcinoma. She did have some wound healing issues in the lateral aspect of her mastectomy site, where a T-plasty was undertaken given her obesity. Notably, she does have underlying diabetes. She has essentially healed that problem up and is now to undergo Port-A-Cath placement, anticipating chemotherapy under the direction of medical oncologist, Dr. Gregg. The risks of bleeding, infection, need for other indicated procedures, and other unforeseen complications were reviewed in detail with her and her . They understand and wished to proceed. FINDINGS: Dark nonpulsatile blood was noted from the right internal jugular vein. Catheter was placed without complication or problem. Good function of the catheter was noted. The port was placed in the left medial pectoral area. A completion angiogram of the device showed a gentle curve on it without sign of kink or other problem. The tip of the catheter is in the superior vena cava. Additionally noted on the postprocedure chest x-ray in recovery room, no sign of pneumothorax or other problem. Electronically Signed By: CELSO GATES MD 08/30/17 1828 PATIENT NAME: SHAHRAM ROA OPERATIVE REPORT DATE OF : 54 REPORT #: [id number] PHYSICIAN: CELSO GATES MD PCP: KAITLYN QUINTANILLA PAC REPORT IS CONFIDENTIAL AND NOT TO BE RELEASED WITHOUT AUTHORIZATION [facility] [address] [place], [place] [address] Signed DESCRIPTION OF PROCEDURE: The patient was brought to the operating room, given a general LMA-type anesthetic. Preoperative antibiotic Ancef was given. Sequential compression device stockings were used. In a mild Trendelenburg position, the right neck and torso were prepared with a chlorhexidine solution and draped sterilely. With the head turned towards the left using the Seldinger technique, the right internal jugular vein was easily accessed showing dark nonpulsatile blood. A flexible J-wire was passed down the wire and the wire was removed. Fluoroscopy was used to confirm the wire in the right heart system. Given her obesity, the port was deemed most optimally placed in the medial right pectoral area. Local anesthetic was injected transversely over about the 2nd rib area and a transverse incision was made and dissection carried through the subcutaneous tissue. A relatively large mammary vein was encountered and this was ligated and divided. The pectoral fascia was ultimately encountered and blunt dissection was used to create a pocket inferiorly on the incision site. The puncture site in the right neck was incised with an #11 blade and subsequently dilator and peel-away sheath introducer passed over the wire. The wire and dilator were removed showing vigorous dark retrograde nonpulsatile bleeding. A previously inspected Bard port Groshong catheter, which had been irrigated with heparin saline was passed down the sheath. The peel-away sheath was removed without problem showing complete removal. Irrigation was undertaken and aspiration showed dark nonpulsatile bleeding within the catheter. Under fluoroscopic control with the table placed in a neutral position, the tip of the catheter was withdrawn to the atrial caval junction or so. Using the tunneling device, the tunnel was created in the subcutaneous space of the neck over the clavicle into the pocket. Care was taken to deliver the tunneling device flush with the pectoralis fascia, so as to avoid an adverse angle where the catheter would join the port. The port had been partially secured to the pectoralis fascia with interrupted 2-0 Vicryl suture. The catheter was cut to appropriate length and secured to the port per swimming pool installer and servicer's instructions using the enclosed collar device to secure it to the device. The Vicryl sutures were used to secure the device to the pectoralis fascia more fully. Access to the device with an angled Lomeil needle showed easy withdrawal of blood and easy flushing of heparinized saline. The port site was closed with interrupted 2-0 Vicryl and the port was accessed with an angled Lomeli needle once again and a fluoroscopic angiogram performed showing a gentle Electronically Signed By: CELSO GATES MD 08/30/17 1828 PATIENT NAME: SHAHRAM ROA OPERATIVE REPORT DATE OF : 54 REPORT #: [id number] PHYSICIAN: CELSO GATES MD PCP: KAITLYN QUINTANILLA PAC REPORT IS CONFIDENTIAL AND NOT TO BE RELEASED WITHOUT AUTHORIZATION [address] [address] Signed curve on the catheter with good function and the tip of the catheter was in the superior vena cava. The port was once again flushed with heparinized saline. The skin was closed with running subcuticular 3-0 Vicryl, single interrupted 3-0 Vicryl was used for the puncture site in the lateral right neck. Steri-Strips were applied as was a Mepilex silver sponge dressing and an OpSite. The patient was ultimately extubated and transferred to recovery room in good condition having suffered no complication. Postprocedure chest x-ray showed no complication of pneumothorax or other problem and good function of the catheter is anticipated. MD LAURIE العلي/KRISTY /[id number] cc: REZA Parker MD Robert C Quackenbush, MD Copies: KAITLYN QUINTANILLA CYNTHIA SUE MD QUACKENBUSH, ROBERT C MD ~ Electronically Signed By: CELSO GTAES MD 08/30/17 1828 PATIENT NAME: SHAHRAM ROA OPERATIVE REPORT DATE OF : 54 REPORT #: [id number] PHYSICIAN: CELSO GATES MD PCP: QUINTANILLA,KAITLYN PAC REPORT IS CONFIDENTIAL AND NOT TO BE RELEASED WITHOUT AUTHORIZATION
[2017-09-30] MEDS ORDERED: ONDANSETRON ODT8 MG PO (12:03)
[2017-09-30] MEDS ORDERED: DEXAMETHASONE4 MG PO (12:03)
[2017-09-30] MEDS ORDERED: LORAZEPAM1 MG PO (12:05)
== END 2017-08-30 14:30 | disposition home or self-care (01) ==
LOC: DS 07:05
PROVIDERS: Surgery
PROC: 05HM33Z Insertion of Infusion Device into Right Internal Jugular Vein, Percutaneous Approach (ICD-10-PCS; 2017-08-30)
PROC: B513YZA Fluoroscopy of Right Jugular Veins using Other Contrast, Guidance (ICD-10-PCS; 2017-08-30)
PROC: 0JH60WZ Insertion of Totally Implantable Vascular Access Device into Chest Subcutaneous Tissue and Fascia, Open Approach (ICD-10-PCS; principal; 2017-08-30 09:30)
DX: C50.912 Malignant neoplasm of unspecified site of left female breast (principal); E66.9 Obesity, unspecified; E11.9 Type 2 diabetes mellitus without complications; I10 Essential (primary) hypertension; E78.5 Hyperlipidemia, unspecified; E05.90 Thyrotoxicosis, unspecified without thyrotoxic crisis or storm; Z79.4 Long term (current) use of insulin; Z79.899 Other long term (current) drug therapy; Z79.82 Long term (current) use of aspirin; K21.9 Gastro-esophageal reflux disease without esophagitis; Z90.12 Acquired absence of left breast and nipple; Z68.35 Body mass index [BMI] 35.0-35.9, adult; Z88.5 Allergy status to narcotic agent
CPT/HCPCS: 00532; 71045; 77001; C1788; J0690; J1100; J1644; J1885; J2250; J2405; J2704; J2765; J3010; J7120